=== PATIENT | female | born 1970 | race Caucasian/White ===

== ENCOUNTER 2023-12-06 19:58 | Emergency (ER) | payer BC, SELFPAY ==
[2023-12-06 20:06] VITALS: BP 176/94; PULSE 62; RESP 18; TEMP 36.8; O2SAT 97; BMI 30.5
--- NOTE | 2023-12-06 20:51 | XR_ITS ---
PROCEDURE INFORMATION: Exam: XR Left Knee Exam date and time: 12/06/2023 8:50 PM Age: 53 years old Clinical indication: Other: Atraumatic bruising posteromedially, pain TECHNIQUE: Imaging protocol: Radiologic exam of the left knee. Views: 3 views. COMPARISON: No relevant prior studies available. FINDINGS: Bones/joints: Mild tricompartmental degenerative changes. Possible osteo cartilaginous loose bodies posteriorly. No acute fracture identified. Soft tissues: Normal. IMPRESSION: DJD and possible loose bodies.
--- NOTE | 2023-12-06 21:08 | [facility].EDGENADL ---
Discharge Plan Disposition Patient Disposition: Home, Self-Care Referrals Follow up/Referrals: Elizabeth Arora APRN [Primary Care Provider] - See instructions Julian Munguia DO [Staff Physician] - See instructions Activity Restrictions/Add. Instructions Additional Instructions/Restrictions: Call your family doctor to establish care for this visit to the emergency department and schedule follow-up within 48 hours to ensure improvement. If you have any worsening of your condition or any other concerning signs or symptoms, return to the emergency department or your primary care doctor for further evaluation. Follow-up with Dr. Munguia for further management and potential imaging of the left knee. Take Tylenol 1000 mg every 6 hours (4 times daily) and ibuprofen 400 mg every 6 hours (4 times daily) as needed with food and water to prevent GI upset and kidney damage. Clinical Impressions Clinical Impression: Acute pain of left knee Discharge ED Provider: Jhonathan Chahal General Adult HPI General Chief complaint: Extremity Injury, Lower Stated complaint: LT knee pain Time Seen by Provider: 12/06/23 20:17 Mode of Arrival: Ambulatory Source of Information: Patient and Spouse Limitations: No Limitations Description of Symptoms (Recalled from ER Triage Doc. by RN): Patient reports that she began having left knee pain last Saturday, on Saturday she noted a large bruise to the interior side of her knee and that the pain began to progressively worsen. Patient was seen by her primary care provider on Saturday and they were to send an order for a doppler and x-ray, but the orders had not showed in the system yet. Patient reports the bruise remains the same in appearance and pain remains 8/10 unrelieved by tylenol and motrin at home. History of Present Illness HPI narrative: Please note that above description of symptoms, in this electronic medical record under categorization of recalled from ER triage doctor by RN are reflective of an initial nursing assessment, however, is not reflective of my full history and physical exam that was personally taken and clarified. Consequentially, this preceding description of symptoms, which may include the patient's categorized chief complaint in the EMR, do not reflect my personal clinical impression, and the ultimate description of history of present illness and patient stated complaints should be deferred to this section of the note. Unless stated otherwise or congruent with this section of the note, additional signs, symptoms, or incongruence should be interpreted as inaccurate with my clinical impression. [facility] Disclaimer: The information contained in this section may have been updated after the patient was seen, as this information can be updated by other users. Social History Smoking Status: Never smoker alcohol intake: never current occupational status: employed Travel in the last 8 weeks: None ROS Obtained: Yes All systems reviewed & no additional complaints except as documented Physical Exam General General appearance: alert Head Head exam: atraumatic and normocephalic Eye Eye exam: Present normal appearance, PERRL and EOMI Neck Neck exam: Present normal inspection, full ROM and trachea midline Respiratory Respiratory exam: Absent respiratory distress, wheezes, stridor, accessory muscle use or prolonged expiratory phase Cardiovascular Cardiovascular exam: Present other (Pulses equal symmetric in upper and lower extremities) Abdominal Exam Abdominal exam: Present soft; Absent distention, tenderness or pulsatile mass Extremities Exam Extremities exam: Present other (Bruising about medial aspect of left knee. Tender with valgus forces as well as posterior drawer meniscus testing. Structurally intact and no evidence of laxity. Neurovascularly intact.); Absent edema Neurological Exam Neurological exam: Present alert, oriented X3 and CN II-XII intact; Absent motor sensory deficit Skin Skin exam: Present warm and dry; Absent diaphoresis or erythema Medical Decision Making Medical Records Medical records reviewed: Yes I reviewed the patient's medical records. Titi Inquiry Pt receiving controlled substance: No Titi was queried for this patient: No Vital Signs: 12/06/23 20:06 Temperature 98.3 F Temperature Source Oral Pulse Rate [Left Radial] 62 Respiratory Rate 18 Blood Pressure [Right Arm] 176/94 H Blood Pressure Mean [Right Arm] 121 Blood Pressure Source [Right Arm] Automatic Cuff 02 Sat by Pulse Oximetry 97 Oxygen Delivery Method Room Air Orders (Tests/Meds): ORDERS Category Date Time Status Knee XR left 3 views [XR knee LT 3V] Stat Exams 12/06/23 20:51 Completed POCUS Point of Care (ER Only) Stat Exams 12/06/23 20:19 Completed Medical Decision Narrative: This is a 53-year-old female with history of midshaft femur fracture as a teenager 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 Patient states she woke up a few days prior to this and noticed pain at the medial aspect of her left knee. Having tenderness with ambulating. No trauma to the area, never had anything like this in the past. No neurovascular deficits. History was obtained via conversation with patient. On arrival, patient hemodynamically stable, alert, [oriented x4, ][appropriate, ]GCS [15], moving extremities spontaneously, pupils equal and reactive to light. Full physical exam performed and significant for very well-appearing woman who is in no acute distress. Left lower extremity bruising medially. Structurally intact. She does have tenderness with valgus forces as well as posterior drawer and meniscus provocative testing. Neurovascularly intact, range of motion intact. No evidence of swelling of posterior knee concerning for intra-articular cyst. No palpable cord. Differential includes DVT, benign MSK injury, ligamentous tear, sprain, strain, fracture, among others. Bedside [id number] ultrasound with no evidence of left lower extremity DVT. Veins are compressible throughout left lower extremity. Patient soft tissue ultrasound of the left knee with no evidence of joint effusion. Patient's ligaments are intact. Lateral meniscus within normal limits, medial meniscus has small, partial tear. X-rays obtained, these demonstrated no acute bony abnormality, but she does have broken osteophytes in the medial joint space on independent interpretation. Because patient at baseline without signs or symptoms of clinical decompensation, deemed appropriate for discharge. Results were relayed to patient[] who voiced understanding and were agreeable to outpatient management and follow up. I discussed my clinical impression with patient[] and answered all questions. At this time, the evidence for any other entities in the differential is insufficient to warrant any further testing or ED observation. This was explained as well. Advisory was given that persistent or worsening symptoms require further evaluation. I confirmed the understanding of this discussion. [employer] disclaimer Much of this encounter note is an electronic fire extinguisher repairer inspector spoken language to printed text. Electronic fire extinguisher repairer inspector of the spoken language may permit errors. Although I have reviewed the note, some errors may still exist. Procedures Limited Ultrasound Indication:: Limited DVT ultrasound Indication: Limited compression ultrasonography of the left extremity was performed to evaluate for non-compressibility of the deep veins in the patient. The ultrasound was performed with the following indications, as noted in the H&P: Left lower knee pain and bruising Identified structures: Left common femoral vein, femoral vein, popliteal vein were examined. Findings: Left CFV: Good compressibility Left FV compressibility Left Popliteal vein: Good compressibility Impression: Left lower extremity DVT ultrasound Images were saved to permanent archive The study was technically adequate CPT: 08265-89-ZG [id number] (complete bilateral study) This study was performed by me, and I personally interpreted all images/videos. Based on my clinical judgement, these images were adequate and not necessitate further imaging. Views:: Limited soft tissue ultrasound Indication: Tenderness medial knee Identified structures: Location: Left knee Findings: Small medial meniscus tear. Otherwise structurally intact knee Impression: Small medial meniscus tear, otherwise structurally intact Images were saved to permanent archive The study was technically adequate Soft Tissue CPT Codes: CPT Lower Extremity: 92761-36 This study was performed by me, and I personally interpreted all images/videos. Based on my clinical judgement, these images were adequate and did not necessitate further imaging. Critical Care Critical Care Time Critical Care Time: No
[2023-12-06 21:57] VITALS: BP 174/81; PULSE 64; RESP 20; TEMP 36.6; O2SAT 98
== END 2023-12-06 22:00 | disposition home or self-care (01) ==
PROVIDERS: Emergency Provider Emergency Medicine; PCP Nurse Practitioner Family
DX: M25.562 Pain in left knee (principal)
CPT/HCPCS: 73562; 99284